=== PATIENT | female | born 1965 | race Caucasian/White ===

== ENCOUNTER 2018-04-10 15:05 | Observation (INO) | payer OTHER ==
[~2018-04-10] VITALS: Ht 182.9 cm; Wt 81.6 kg
--- NOTE | ~2018-04-10 | OP ---
[address] [address] OPERATIVE REPORT Name: PAIGE CASTANEDA Room: [address] Angel Tracy#: [id number] Admission: 04/10/18 Attend Phys: Diomedes Moctezuma MD Discharge: Date of : 63 Report #: [id number] THIS REPORT FOR: //name// CC: Omar Moctezuma DATE OF SERVICE: 04/11/2018 PREOPERATIVE DIAGNOSIS: Acute appendicitis. POSTOPERATIVE DIAGNOSIS: Acute appendicitis. OPERATIVE PROCEDURE: Laparoscopic appendectomy. ANESTHESIA: General endotracheal. OPERATIVE FINDINGS: Inflamed appendix without perforation, multiple abdominal wall adhesions. DESCRIPTION OF PROCEDURE: After the patient was placed under general endotracheal anesthesia, a timeout was taken and antibiotics were administered preoperatively with Zosyn. I began by doing an injection around the infraumbilical crease with 0.5% Marcaine. I made a transverse incision there with a #11 blade, its edges lifted up with 2 Adson's and cautery used to dissect the anterior abdominal wall. That anterior abdominal wall was grasped with 2 Kochers and cleared with cautery and then transected transversely with a #15 scalpel blade. I then used a mosquito to bluntly dissect into the peritoneal cavity without injury to underlying abdominal viscera. An 0 PDS was looped through the incision site and a size 12 Ashley trocar was placed to the peritoneal cavity. Insufflation with carbon dioxide to 5 liters was completed and a 5 mm 30-degree scope was inserted. Adhesions on the anterior abdominal wall were encountered. I then was able to see the suprapubic region and the right upper abdomen and injected 0.5% Marcaine at the suprapubic area, made a small stab incision with a #15 scalpel blade and a blunt 5 mm trocar was inserted there as well as the right upper abdomen. Using an Endo Best I was able to lift the distal cecum and at the appendiceal cecal junction I was able to lift up the inflamed appendix with an inflamed mesoappendix. Using ligature I dissected the ligature down to the appendiceal cecal junction and then using an Endo-JANENE 30 I was able to get across the base of the appendix and fired across it, freeing the appendix from the cecum. I then placed an Endopouch from the umbilical port and placed the appendix in that pouch and pulled it closed and I retrieved the appendix through the umbilical incision. The right lower quadrant then was carefully inspected. There was no active bleeding seen. Pneumoperitoneum was released. The patient was placed in neutral position and all the trocars and instruments were removed. At the umbilical stalk site, the 0 PDS was tied and then injected with 0.5% Marcaine [place] [id number] OPERATIVE REPORT Name: [facility] Room: [address] Angel MMarcosRMarcos#: [id number] Admission: 04/10/18 Attend Phys: Diomedes Moctezuma MD Discharge: Date of : 63 Report #: [id number] were closed with buried 4-0 PDS sutures and Dermabond. Estimated blood loss 1 mL. Sponge and instrument count correct. Specimen, appendix to pathology. The patient was extubated, returned to recovery in satisfactory condition. By: [id number] Bowden MD /nt
[2018-04-10 15:28] VITALS: BP 127/80
[2018-04-10] MEDS ORDERED: SYNTHROID50 MCG PO (15:33)
[2018-04-10] MEDS ORDERED: 24HR ALLERGY REL5 MG PO (15:34)
[2018-04-10] MEDS ORDERED: LEXAPRO20 MG PO (15:34)
[2018-04-10 16:24] LABS: URINE BILIRUBIN NEGATIVE (Negative); URINE BLOOD TRACE (Negative); URINE CLARITY SL CLOUDY; URINE COLOR YELLOW; URINE GLUCOSE-RANDOM NEGATIVE (Negative); URINE KETONES 1+ (Negative); URINE LEUKOCYTES-REFLEX 1+ (Negative); URINE NITRITE-REFLEX NEGATIVE (Negative); URINE PROTEIN NEGATIVE (Negative); URINE UROBILINOGEN 0.2 E.U./dl (0.2-1.0)
[2018-04-10 16:37] LABS: SQUAMOUS 4-10 Moderate /LPF (0-3); URINE RBC 0-2 Rare /HPF (0-2); URINE WBC-REFLEX 0-5 Rare /HPF (0-5)
[2018-04-10 16:48] LABS: ABSOLUTE EOSINOPHILS 0.1 thou/uL (0.0-0.7); ABSOLUTE LYMPHOCYTES 1.2 thou/uL (0.8-5.3); ABSOLUTE MONOCYTES 0.5 thou/uL (0.0-1.2); ABSOLUTE NEUTROPHILS 5.8 thou/uL (1.6-8.1); BASOPHILS 0.4 %; EOSINOPHILS 1.4 %; HEMATOCRIT 39.6 % (37.0-47.0); LYMPHOCYTES 15.3 %; MCH 29.3 pg (26.0-34.0); MCHC 32.7 g/dL (28.0-37.0); MCV 89.5 fL (80.0-100.0); MONOCYTES 6.1 %; MPV 7.2 fl. (7.2-11.1); NUCLEATED RBCS 0 /100WBC; PLATELET COUNT* 245 thou/uL (150-400); POLYS 76.8 %; RBC 4.43 mil/uL (4.20-5.00); RDW-CV 13.1 % (10.5-14.5); WBC 7.6 thou/uL (4.0-11.0)
[2018-04-10 16:54] LABS: CALCIUM 8.8 mg/dL (8.5-10.1); CREATININE 0.7 mg/dL (0.6-1.3); POTASSIUM 3.7 mmol/L (3.5-5.1)
[2018-04-10 16:58] LABS: ALBUMIN 3.7 g/dL (3.4-5.0); TOTAL BILIRUBIN 0.8 mg/dL (<0.1-1.0); TOTAL PROTEIN 7.3 g/dL (6.4-8.2)
[2018-04-10 18:48] VITALS: BP 116/60
[2018-04-10 22:30] VITALS: BP 105/53
[2018-04-11 08:00] VITALS: BP 110/65
[2018-04-11 10:00] VITALS: BP 105/53; BP 122/64
[2018-04-11 16:00] VITALS: BP 97/46
[2018-04-11] MEDS ORDERED: NORCO 5-325 TA1 EACH PO (18:36)
[2018-04-11 18:42] VITALS: BP 97/46
[2018-04-11 18:45] VITALS: BP 97/46
[2018-04-11 19:42] VITALS: BP 97/46
--- NOTE | 2018-04-15 11:07 | PATH ---
[address] [address] PATHOLOGY RPT PROCEDURE Name: PRETTY SINGH SAMUEL Room: [address] Angel MMarcosRMarcos#: [id number] Admission: 04/10/18 Date of : 63 Discharge: 04/11/18 Report #: [id number] Path Case #: [id number] [facility] Accession Number: [id number] . 01 Material submitted: . APPENDIX . 01 Clinical history: . Appendicitis . 02 Diagnosis: Appendix: - Acute appendicitis, waldemar-appendicitis and serositis. . (TOY:at;04/12/18) MBR/04/13/2018 . 02 Electronically signed: . Jorje Carrasco MD, Pathologist NPI- [id number] . 01 Gross description: . The specimen is received in formalin, labeled "Pretty Singh, appendix", is an appendix measuring 4.7 cm in length and up to 0.8 cm in diameter with attached yellow lobulated mesoappendix 3.5 x 2.0 x 1.0 cm. The proximal margin is closed by a linear staple line measuring 1.5 cm in length with an average 0.2 cm width. The staple line is removed and the adjacent serosa inked black. The serosa is grant with congested vessels and auguste-white exudate. The proximal lumen is dilated with the mid to distal not dilated and filled with dark brown hemorrhagic, soft material and no discrete fecalith. The distal tip is fibrosed with no discrete mass. The wall has an average 0.2 cm thickness. No discrete perforation is identified. Collector Of Port tissue is submitted in A1-A2. (SWS; 04/11/2018) SHS/SHS . 02 Pathologist provided ICD-10: K35.80 . 02 CPT . 016399 Specimen Comment: A courtesy copy of this report has been sent to Specimen Comment: [phone], . Specimen Comment: Report sent to / DR YANEZ Specimen Comment: A duplicate report has been generated due to demographic updates. Performed at: [address] [place] [address] PATHOLOGY RPT PROCEDURE Name: [facility] Room: [address] Angel Tracy#: [id number] Admission: 04/10/18 Date of : 63 Discharge: 04/11/18 Report #: [id number] Path Case #: [id number] [address] [facility] [address], [place], [place] [id number] MD Tyrell Vivas MD Phone: [phone] Performed at: [address] [place] [id number] MD Jorje Carrasco MD Phone: [phone]
== END 2018-04-11 19:20 | disposition home or self-care (01) ==
LOC: M.ERS 15:05 → M.TBA-ER 17:52 → M.ORTHSURG 17:52
PROVIDERS: Nurse Practitioner Family; ADMIT Surgery
DX: K35.80 Unspecified acute appendicitis (principal); K59.00 Constipation, unspecified; Z98.890 Other specified postprocedural states; Z79.899 Other long term (current) drug therapy; Z90.710 Acquired absence of both cervix and uterus

== ENCOUNTER 2020-05-10 11:29 | Inpatient (IN) | payer OTHER ==
[~2020-05-10] VITALS: Ht 182.9 cm; Wt 101.2 kg
[~2020-05-10 11:29] MED LIST: 24HR ALLERGY REL5 MG PO; LEXAPRO20 MG PO; NORCO 5-325 TA1 EACH PO; SYNTHROID50 MCG PO
[2020-05-10 11:39] VITALS: BP 143/78
[2020-05-10] MEDS ORDERED: TESSALON PERLE100 M1 PO (11:46)
[2020-05-10] MEDS ORDERED: AMOXICILLIN 50500 MG PO (11:46)
[2020-05-10 12:29] LABS: ABSOLUTE LYMPHOCYTES 1.2 thou/uL (0.8-5.3); ABSOLUTE MONOCYTES 0.3 thou/uL (0.0-1.2); ABSOLUTE NEUTROPHILS 2.7 thou/uL (1.6-8.1); BASOPHILS 0.5 %; EOSINOPHILS 0.4 %; HEMATOCRIT 40.3 % (37.0-47.0); HEMOGLOBIN 13.8 gm/dL (12.0-15.0); LYMPHOCYTES 28.1 %; MCH 29.8 pg (26.0-34.0); MCHC 34.2 g/dL (28.0-37.0); MCV 87.3 fL (80.0-100.0); MPV 6.9 fl. (7.2-11.1); NUCLEATED RBCS 0 /100WBC; PLATELET COUNT* 171 thou/uL (150-400); RBC 4.61 mil/uL (4.20-5.00); RDW-CV 13.4 % (10.5-14.5); WBC 4.2 thou/uL (4.0-11.0)
[2020-05-10 12:39] LABS: CREATININE 0.9 mg/dL (0.6-1.3); POTASSIUM 3.2 mmol/L (3.5-5.1)
[2020-05-10 12:44] LABS: ALBUMIN 3.4 g/dL (3.4-5.0); TOTAL BILIRUBIN 0.3 mg/dL (<0.1-1.0); TOTAL PROTEIN 6.7 g/dL (6.4-8.2)
[2020-05-10 12:55] LABS: BE 0.2 mmol/L (-2 to +3); PCO2 38.2 mmHg (35.0-45.0); PO2 63.3 mmHg (75.0-100.0); pH 7.423 (7.340-7.450)
[2020-05-10 14:09] LABS: URINE BILIRUBIN NEGATIVE (Negative); URINE BLOOD NEGATIVE (Negative); URINE CLARITY CLEAR; URINE COLOR YELLOW; URINE GLUCOSE-RANDOM NEGATIVE (Negative); URINE KETONES NEGATIVE (Negative); URINE LEUKOCYTES-REFLEX 1+ (Negative); URINE NITRITE-REFLEX NEGATIVE (Negative); URINE PROTEIN NEGATIVE (Negative); URINE SPECIFIC GRAVITY 1.025 (1.005-1.030); URINE UROBILINOGEN 0.2 E.U./dl (0.2-1.0)
[2020-05-10 14:35] LABS: BACTERIA-REFLEX 1-9 Few /HPF (None Seen); CASTS None Seen /LPF (None Seen); CRYSTALS None Seen /LPF (None Seen); MUCUS None Seen strn/LPF (None Seen); SQUAMOUS >10 Many /LPF (0-3); URINE RBC 0-2 Rare /HPF (0-2); URINE WBC-REFLEX 0-5 Rare /HPF (0-5)
[2020-05-10 16:20] VITALS: BP 119/68
[2020-05-10 16:45] VITALS: BP 115/66
[2020-05-10 20:00] VITALS: BP 113/49
[2020-05-10 21:35] VITALS: BP 118/59; BP 121/49
[2020-05-11 02:06] LABS: HEPATITIS B SURFACE AG Negative (Negative)
[2020-05-11 04:00] VITALS: BP 127/49
[2020-05-11 05:30] LABS: HEMATOCRIT 37.5 % (37.0-47.0); HEMOGLOBIN 12.5 gm/dL (12.0-15.0); MCH 29.4 pg (26.0-34.0); MCHC 33.4 g/dL (28.0-37.0); MPV 7.8 fl. (7.2-11.1); RBC 4.26 mil/uL (4.20-5.00); RDW-CV 13.3 % (10.5-14.5); WBC 2.8 thou/uL (4.0-11.0)
[2020-05-11 05:56] LABS: CALCIUM 8.2 mg/dL (8.5-10.1); CREATININE 0.7 mg/dL (0.6-1.3)
[2020-05-11 06:01] LABS: ALBUMIN 3.2 g/dL (3.4-5.0); MAGNESIUM 1.9 mg/dL (1.8-2.4); TOTAL BILIRUBIN 0.3 mg/dL (<0.1-1.0); TOTAL PROTEIN 6.5 g/dL (6.4-8.2)
[2020-05-11 06:11] LABS: HIV-1/HIV-2 ANTIBODY Non Reactive (Non Reactive)
[2020-05-11 08:00] VITALS: BP 121/56
[2020-05-11 12:00] VITALS: BP 111/68
[2020-05-11 16:00] VITALS: BP 111/62
[2020-05-11 20:00] VITALS: BP 113/65
[2020-05-12] VITALS: BP 128/68
[2020-05-12 04:39] VITALS: BP 106/58
[2020-05-12 08:40] VITALS: BP 112/66
[2020-05-12] MEDS ORDERED: TESSALON PERLE100 M1 PO (08:40)
[2020-05-12] MEDS ORDERED: VENTOLIN HFA 1818 GM INH (08:40)
[2020-05-12] MEDS ORDERED: PREDNISONE 10 M10 MG PO (08:40)
[2020-05-12 15:46] VITALS: BP 112/66
== END 2020-05-12 17:45 | disposition home or self-care (01) | DRG 177 ==
LOC: M.ERS 11:29 → M.TBA-ER 14:54 → M.ORTHSURG 14:54
PROVIDERS: Personal Emergency Response Attendant; ADMIT Internal Medicine; ATTEND Internal Medicine
PROC: XW033E5 Introduction of Remdesivir Anti-infective into Peripheral Vein, Percutaneous Approach, New Technology Group 5 (ICD-10-PCS; principal; 2020-05-10)
PROC: XW13325 Transfusion of Convalescent Plasma (Nonautologous) into Peripheral Vein, Percutaneous Approach, New Technology Group 5 (ICD-10-PCS; principal; 2020-05-10)
DX: U07.1 COVID-19 (principal); J96.01 Acute respiratory failure with hypoxia; F32.9 Major depressive disorder, single episode, unspecified; E87.6 Hypokalemia; M47.816 Spondylosis without myelopathy or radiculopathy, lumbar region; Z90.49 Acquired absence of other specified parts of digestive tract; Z90.710 Acquired absence of both cervix and uterus; Z98.891 History of uterine scar from previous surgery; Z79.899 Other long term (current) drug therapy; Z88.5 Allergy status to narcotic agent

== ENCOUNTER → 2020-09-09 | Outpatient (CLI) | payer OTHER ==
[~2020-09-09] MED LIST changes: +AMOXICILLIN 50500 MG PO; +BUPROPION XL300 MG PO; +PREDNISONE 10 M10 MG PO; +TESSALON PERLE100 M1 PO; +TIZANIDINE HCL4 M2 PO; +VENTOLIN HFA 1818 GM INH
== END ==
LOC: M.PC 08:43
PROVIDERS: ATTEND Physical Medicine & Rehabilitation
DX: M51.37 Other intervertebral disc degeneration, lumbosacral region (principal); M47.26 Other spondylosis with radiculopathy, lumbar region; M79.604 Pain in right leg; M79.605 Pain in left leg

== ENCOUNTER → 2020-10-16 | Outpatient (CLI) | payer OTHER ==
[~2020-10-16] MED LIST changes: +HYDROCODON-ACE1 EAC7 PO
== END | disposition home or self-care (01) ==
LOC: M.PC 08:42
PROVIDERS: ATTEND Physical Medicine & Rehabilitation
DX: M51.16 Intervertebral disc disorders with radiculopathy, lumbar region (principal); M47.26 Other spondylosis with radiculopathy, lumbar region; M48.061 Spinal stenosis, lumbar region without neurogenic claudication; G89.29 Other chronic pain; M54.5 Low back pain; F32.9 Major depressive disorder, single episode, unspecified; F41.9 Anxiety disorder, unspecified; Z98.890 Other specified postprocedural states; Z79.899 Other long term (current) drug therapy; Z88.8 Allergy status to other drugs, medicaments and biological substances; Z90.49 Acquired absence of other specified parts of digestive tract

== ENCOUNTER → 2020-12-23 | Outpatient (CLI) | payer OTHER | END | disposition home or self-care (01) | LOC: M.PC 10:47 | PROVIDERS: ATTEND Physical Medicine & Rehabilitation | DX: M54.5 Low back pain (principal); M54.16 Radiculopathy, lumbar region; M79.605 Pain in left leg; F32.9 Major depressive disorder, single episode, unspecified; F41.9 Anxiety disorder, unspecified; Z98.890 Other specified postprocedural states; Z79.899 Other long term (current) drug therapy; Z88.6 Allergy status to analgesic agent ==